=== PATIENT | male | born 1940 | race Caucasian/White ===

== ENCOUNTER → 2018-07-14 | Outpatient (CLI) | payer MEDICARE, OTHER | END | disposition home or self-care (01) | LOC: SHCH 07:50 | PROVIDERS: ATTEND Internal Medicine Cardiovascular Disease | DX: I35.0 Nonrheumatic aortic (valve) stenosis (principal); Z95.2 Presence of prosthetic heart valve | CPT/HCPCS: 93306 ==

== ENCOUNTER → 2018-07-17 | Outpatient (CLI) | payer MEDICARE, OTHER | END | disposition home or self-care (01) | LOC: EDUNIT# 13:30 → SHCH 13:37 | PROVIDERS: ATTEND Internal Medicine Cardiovascular Disease | DX: I65.23 Occlusion and stenosis of bilateral carotid arteries (principal); Z95.2 Presence of prosthetic heart valve | CPT/HCPCS: 93880 ==

== ENCOUNTER 2018-08-20 05:46 | Observation (INO) | payer MEDICARE, OTHER ==
[2018-08-18 08:44] VITALS: BP 174/91
[2018-08-18 09:11] LABS: BASOPHILS % (AUTO) 0.2 % (0.0-5.0); HEMATOCRIT 40.7 % (42-54); LYMPHOCYTES % (AUTO) 16.4 % (21.0-51.0); MEAN CORPUSCULAR HGB CONC 34.2 g/dL (32.0-36.0); MEAN CORPUSCULAR VOLUME 96.4 fL (79-99); MONOCYTES % (AUTO) 8.4 % (3.0-13.0); PLATELET COUNT (AUTO) 133 K/uL (130-400); RED BLOOD CELL COUNT(AUTO) 4.22 MIL/uL (4.50-6.20); RED CELL DISTRIBUTION WIDTH 13.3 % (11.0-15.5); WHITE BLOOD COUNT (AUTO) 8.3 K/uL (4.8-10.8)
[2018-08-18 09:26] LABS: CREATININE 1.3 mg/dL (0.5-1.5); POTASSIUM 4.3 mmol/L (3.5-5.1)
[2018-08-18 09:29] LABS: APPEARANCE,URINE Clear (CLEAR); BILIRUBIN,URINE Negative (NEGATIVE); COLOR,URINE Yellow (YELLOW); GLUCOSE, URINE (UA) Negative (NEGATIVE); KETONES,URINE Negative (NEGATIVE); LEUKOCYTE ESTERASE ,URINE Negative (NEGATIVE); NITRATE,URINE Negative (NEGATIVE); OCCULT BLOOD,URINE Negative (NEGATIVE); PROTEIN,URINE Negative (NEGATIVE)
[2018-08-18 09:35] LABS: INR 0.96 (0.85-1.15); PARTIAL THROMBOPLASTIN TIME 25.1 SEC (26.3-35.5); PROTHROMBIN TIME 10.1 SEC (9.6-11.6)
[~2018-08-20] VITALS: Ht 170.2 cm; Wt 96.3 kg
[2018-08-20] VITALS (14 sets, daily range): BP systolic 94–119; BP diastolic 48–80
[~2018-08-20 05:46] MED LIST: ACETAMINOPHEN 325 MG TAB PO PRN; ASPI-555 PO; CLOP75TA32 PO; DOCU100T PO; FURO40TA5 PO; IBUP-2077 PO; ISOS20TA7 PO; OMEP20TA25 PO; RANO500T3 PO; ROSU40TA20 PO; SODIUM CHLORIDE 0.9% 500ML 500 ML IV SCH; TRAZ150T79 PO; VALS1TAB75 PO
[2018-08-20] MEDS ORDERED: SODIUM CHLORIDE 0.9% 1000ML 1,000 ML IV ONE (06:19)
[2018-08-20] MEDS ORDERED: BUDE10.2 IH (08:15)
[2018-08-20] MEDS ORDERED: HEPARIN SODIUM 1000UNIT/ML 10ML VIAL ONE (09:44)
[2018-08-20] MEDS ORDERED: NITROGLYCERIN 5 MG/ML 10 ML VIAL IV ONE (09:45)
[2018-08-20] MEDS ORDERED: SODIUM BICARB 50MEQ 50ML VIAL ONE (09:45)
[2018-08-20] MEDS ORDERED: IOHEXOL-350 50ML VIAL IV ONE (09:45)
[2018-08-20] MEDS ORDERED: IOHEXOL 350 MG/ML 100ML INFUS..BTL IV ONE (09:45)
[2018-08-20] MEDS ORDERED: LIDOCAINE HCL 2% 20ML ONE (09:45)
[2018-08-20] MEDS ORDERED: MIDAZOLAM HCL 1 MG/ML 2ML VIAL ONE ×3 (10:20→11:45)
[2018-08-20] MEDS ORDERED: MEPERIDINE-PF 25 MG/ML SYG ONE ×3 (10:21→11:45)
[2018-08-20] MEDS: SODIUM CHLORIDE 0.9% 1000ML 1,000 ML IV SCH ×2 (12:01→23:08)
[2018-08-20] MEDS ORDERED: ACETAMINOPHEN-CODEINE 300/30MG TAB PO PRN ×2 (12:15)
[2018-08-20] MEDS ORDERED: ONDANSETRON HCL 4 MG/2 ML VIAL IVP PRN (12:15)
[2018-08-20] MEDS: ALBUTEROL SULFATE 0.083% 2.5 MG/3 ML INH IH SCH ×2 (18:08→23:10)
[2018-08-20] MEDS: BUDESONIDE 0.5 MG/2 ML INH IH SCH (18:21)
[2018-08-20] MEDS: RANOLAZINE 500 MG TAB.SR.12H PO SCH (20:47)
[2018-08-20] MEDS ORDERED: TRAZODONE HCL 100 MG TABLET PO SCH (21:00)
[2018-08-21] VITALS: BP 99/52
[2018-08-21 04:14] VITALS: BP 121/61
[2018-08-21 04:43] LABS: HEMATOCRIT 34.8 % (42-54); MEAN CORPUSCULAR HEMOGLOBIN 32.5 pg (27.0-33.0); MEAN CORPUSCULAR VOLUME 95.7 fL (79-99); NUCLEATED RED BLOOD CELLS 0.1 % (0.0-0.19); PLATELET COUNT (AUTO) 103 K/uL (130-400); RED BLOOD CELL COUNT(AUTO) 3.64 MIL/uL (4.50-6.20); RED CELL DISTRIBUTION WIDTH 13.3 % (11.0-15.5); WHITE BLOOD COUNT (AUTO) 8.2 K/uL (4.8-10.8)
[2018-08-21 05:07] LABS: CREATININE 1.5 mg/dL (0.5-1.5); POTASSIUM 3.5 mmol/L (3.5-5.1)
[2018-08-21] MEDS: BUDESONIDE 0.5 MG/2 ML INH IH SCH (06:14)
[2018-08-21] MEDS: ALBUTEROL SULFATE 0.083% 2.5 MG/3 ML INH IH SCH (06:14)
[2018-08-21 08:07] VITALS: BP 119/58
[2018-08-21] MEDS ORDERED: LOSA1TAB37 PO (08:55)
[2018-08-21] MEDS ORDERED: PANT40TA PO (08:55)
[2018-08-21] MEDS ORDERED: FUROSEMIDE 40 MG TABLET PO SCH (09:00)
[2018-08-21] MEDS ORDERED: CLOPIDOGREL BISULFATE 75 MG TAB PO SCH (09:00)
[2018-08-21] MEDS ORDERED: DOCUSATE SODIUM 100 MG CAP PO SCH (09:00)
[2018-08-21] MEDS ORDERED: ASPIRIN 81MG TAB.CHEW PO SCH (09:00)
[2018-08-21] MEDS ORDERED: LOSARTAN/HYDROCHLOROTHIAZIDE 50-12.5MG TABLET PO SCH (09:00)
[2018-08-21] MEDS ORDERED: ISOSORBIDE MONONITRATE 20 MG TABLET PO SCH (09:00)
[2018-08-21] MEDS ORDERED: PANTOPRAZOLE SODIUM 40 MG TABLET.DR PO SCH (09:00)
[2018-08-21] MEDS ORDERED: ATORVASTATIN CALCIUM 40 MG TABLET PO SCH (09:00)
[2018-08-21] MEDS: RANOLAZINE 500 MG TAB.SR.12H PO SCH (09:21)
== END 2018-08-21 09:30 | disposition home or self-care (01) ==
LOC: DAH 05:46 → 2DH 05:47
PROVIDERS: ADMIT Internal Medicine Cardiovascular Disease; ATTEND Internal Medicine Cardiovascular Disease
DX: I25.119 Atherosclerotic heart disease of native coronary artery with unspecified angina pectoris (principal); I12.9 Hypertensive chronic kidney disease with stage 1 through stage 4 chronic kidney disease, or unspecified chronic kidney disease; N18.3 Chronic kidney disease, stage 3 (moderate); I25.82 Chronic total occlusion of coronary artery; I35.0 Nonrheumatic aortic (valve) stenosis; E78.5 Hyperlipidemia, unspecified; E66.9 Obesity, unspecified; T82.855A Stenosis of coronary artery stent, initial encounter; T82.857A Stenosis of other cardiac prosthetic devices, implants and grafts, initial encounter; Y83.1 Surgical operation with implant of artificial internal device as the cause of abnormal reaction of the patient, or of later complication, without mention of misadventure at the time of the procedure; Y83.2 Surgical operation with anastomosis, bypass or graft as the cause of abnormal reaction of the patient, or of later complication, without mention of misadventure at the time of the procedure; Z95.3 Presence of xenogenic heart valve; Z95.1 Presence of aortocoronary bypass graft; Z90.49 Acquired absence of other specified parts of digestive tract; Z82.49 Family history of ischemic heart disease and other diseases of the circulatory system; Z79.01 Long term (current) use of anticoagulants
CPT/HCPCS: 36415 ×2; 71045; 80048 ×2; 80061; 81003; 85025; 85027; 85610; 85730; 93005; 93455; 94640 ×5; 94664; C1725; C1760; C1769 ×2; C1874 ×2; C1884 ×2; C1887 ×2; C1893 ×2; C1894; C9604 ×2; G0378 ×28; J1644 ×3; J2175 ×3; J2250 ×3; J3490 ×3; J7030 ×3; Q9965 ×2; Q9967 ×2; 93454; 99156; 99157; C9600

== ENCOUNTER → 2019-12-24 | Outpatient (CLI) | payer MEDICARE, OTHER ==
[~2019-12-24] MED LIST changes: -ACETAMINOPHEN 325 MG TAB PO PRN; +BUDE10.2 IH; +LOSA1TAB37 PO; -OMEP20TA25 PO; +PANT40TA PO; -ROSU40TA20 PO; +ROSU40TA21 PO; -SODIUM CHLORIDE 0.9% 500ML 500 ML IV SCH; -VALS1TAB75 PO
== END | disposition home or self-care (01) ==
LOC: SHCH 12:38
PROVIDERS: ATTEND Internal Medicine Cardiovascular Disease
DX: R60.9 Edema, unspecified (principal)
CPT/HCPCS: 93970

== ENCOUNTER 2020-06-15 07:30 | Day surgery (SDC) | payer MEDICARE ==
--- NOTE | 2020-06-14 09:27 | NUR ---
report reported to dr washington and dr fu that covid test was not done on preop day. ok to proceed with covid rapid antigen in am if pt asymptomatic.
[2020-06-14 11:56] VITALS: BP 119/79
[~2020-06-15] VITALS: Ht 172.7 cm; Wt 87.5 kg
[2020-06-15] VITALS (10 sets, daily range): BP systolic 103–129; BP diastolic 59–82
[~2020-06-15 07:30] MED LIST changes: +AMIO200T5 PO; +APIX5TAB PO; -ASPI-555 PO; -BUDE10.2 IH; +DILT120C12 PO; -DOCU100T PO; -IBUP-2077 PO; -ISOS20TA7 PO; +ISOS60TA4 PO; -LOSA1TAB37 PO; +MULT-1192 PO; +RANO10003 PO; -RANO500T3 PO; +SODIUM CHLORIDE 0.9% 500ML 500 ML IV SCH
--- NOTE | 2020-06-15 07:56 | NUR ---
EKG Dr. Montiel was made aware of pre-cardioversion EKGs. Stated ok to proceed
[2020-06-15 08:04] LABS: BASOPHILS % (AUTO) 0.1 % (0.0-5.0); EOSINOPHILS % (AUTO) 0.7 % (0.0-8.0); HEMATOCRIT 36.9 % (42-54); LYMPHOCYTES % (AUTO) 17.7 % (21.0-51.0); MEAN CORPUSCULAR HEMOGLOBIN 32.7 pg (27.0-33.0); MEAN CORPUSCULAR HGB CONC 33.6 g/dL (32.0-36.0); MEAN CORPUSCULAR VOLUME 97.4 fL (79-99); MONOCYTES % (AUTO) 8.8 % (3.0-13.0); NEUTROPHILS % (AUTO) 72.5 % (40.0-77.0); PLATELET COUNT (AUTO) 146 K/uL (130-400); RED BLOOD CELL COUNT(AUTO) 3.79 MIL/uL (4.50-6.20); RED CELL DISTRIBUTION WIDTH 13.2 % (11.0-15.5); WHITE BLOOD COUNT (AUTO) 8.3 K/uL (4.8-10.8)
[2020-06-15 08:09] LABS: CREATININE 1.4 mg/dL (0.5-1.5)
--- NOTE | 2020-06-15 08:55 | NUR ---
Low potassium Made Dr. Montiel aware of low potassium. Orders to be given post procedure.
[2020-06-15] MEDS ORDERED: PROPOFOL 10 MG/ML 20ML VIAL IV ONE (08:57)
[2020-06-15] MEDS ORDERED: SUCCINYLCHOLINE 200MG/10ML SYR ONE (08:57)
[2020-06-15] MEDS ORDERED: ATROPINE SULFATE 0.1 MG/ML 10 ML SYG IVP ONE (08:58)
--- NOTE | 2020-06-15 09:05 | NUR ---
Start Dr. Montiel and Dr. Mercado in room. Pads applied by Dr. Montiel. Time out was then called. Procedure to begin. First shock delivered at 0913 at 200j. Pt in normal sinus rhythm. No further shocks needed. Pt bradycardic. MDs present and aware. Post cardioversion EKG done and shown to Dr. Montiel.
[2020-06-15] MEDS ORDERED: POTASSIUM CHLORIDE 20 MEQ ERTAB PO SCH (09:45)
--- NOTE | 2020-06-15 10:15 | NUR ---
D/C Pt prepared for discharge. Pt awake and alert. Very pleasant and denies any c/o. Reviewed discharge instructions with pt and over the phone. Informed them of appointment times and new prescription. Made aware that Potassium 40meq was given to pt earlier. Pt and verbalized understanding regarding discharge instructions. Pt was then taken out of facility via w/c with awaiting in private car.
== END 2020-06-15 10:30 ==
LOC: DAH 07:30
PROVIDERS: ATTEND Internal Medicine Cardiovascular Disease
DX: I47.1 Supraventricular tachycardia (principal); I25.10 Atherosclerotic heart disease of native coronary artery without angina pectoris; I42.0 Dilated cardiomyopathy; I10 Essential (primary) hypertension; E03.9 Hypothyroidism, unspecified; Z79.01 Long term (current) use of anticoagulants; Z79.899 Other long term (current) drug therapy
CPT/HCPCS: 36415; 80048; 85025; 87426; 92960; 93005 ×2; A4215 ×2; A4216; A4221; A4222; A4223 ×2; A4606; A4663; J2704; J0330; J0461

== ENCOUNTER → 2020-06-17 | Outpatient (CLI) | payer MEDICARE ==
[~2020-06-17] MED LIST changes: -SODIUM CHLORIDE 0.9% 500ML 500 ML IV SCH
== END | disposition home or self-care (01) ==
LOC: SHCH 09:20
PROVIDERS: ATTEND Internal Medicine Cardiovascular Disease
DX: I08.0 Rheumatic disorders of both mitral and aortic valves (principal); I25.5 Ischemic cardiomyopathy; I31.3 Pericardial effusion (noninflammatory)
CPT/HCPCS: 93306

== ENCOUNTER 2020-08-03 06:55 | Day surgery (SDC) | payer MEDICARE ==
[2020-08-01 09:12] LABS: BASOPHILS % (AUTO) 0.1 % (0.0-5.0); EOSINOPHILS % (AUTO) 0.8 % (0.0-8.0); LYMPHOCYTES % (AUTO) 14.9 % (21.0-51.0); MEAN CORPUSCULAR HEMOGLOBIN 32.1 pg (27.0-33.0); MEAN CORPUSCULAR HGB CONC 32.9 g/dL (32.0-36.0); MEAN CORPUSCULAR VOLUME 97.7 fL (79-99); MONOCYTES % (AUTO) 10.1 % (3.0-13.0); NEUTROPHILS % (AUTO) 73.7 % (40.0-77.0); PLATELET COUNT (AUTO) 120 K/uL (130-400); RED BLOOD CELL COUNT(AUTO) 3.89 MIL/uL (4.50-6.20); RED CELL DISTRIBUTION WIDTH 13.2 % (11.0-15.5); WHITE BLOOD COUNT (AUTO) 7.8 K/uL (4.8-10.8)
[2020-08-01 09:17] LABS: CREATININE 1.5 mg/dL (0.5-1.5); POTASSIUM 3.7 mmol/L (3.5-5.1)
--- NOTE | 2020-08-02 10:08 | NUR ---
[employer] rep Spoke to Donaldo with [employer] and made him aware of pt possible having a dual chamber pacemaker implant. Verbalized understanding
[2020-08-02 10:16] VITALS: BP 134/63
--- NOTE | 2020-08-02 13:23 | NUR ---
Abnormal labs Reported abnormal labs to KIM Mcmullen. Said ok to proceed.
[~2020-08-03] VITALS: Ht 167.6 cm; Wt 86.2 kg
[~2020-08-03 06:55] MED LIST changes: -AMIO200T5 PO; +AMIO200T6 PO; -DILT120C12 PO; +SODIUM CHLORIDE 0.9% 1000ML 1,000 ML IV SCH
--- NOTE | 2020-08-03 08:03 | NUR ---
Procedure cancelled due to patient taking eliquis yesterday morning, advised patient about the need to rescheduled and the importance of why, per Doctor Tiana.
== END 2020-08-03 07:30 | disposition home or self-care (01) ==
LOC: DAH 06:55
PROVIDERS: ATTEND Internal Medicine Cardiovascular Disease
DX: I47.1 Supraventricular tachycardia (principal); I25.10 Atherosclerotic heart disease of native coronary artery without angina pectoris; Z95.1 Presence of aortocoronary bypass graft; I42.0 Dilated cardiomyopathy; I10 Essential (primary) hypertension; E78.5 Hyperlipidemia, unspecified; Z79.01 Long term (current) use of anticoagulants; Z79.899 Other long term (current) drug therapy; Z53.8 Procedure and treatment not carried out for other reasons
CPT/HCPCS: 36415; 80048; 85025

== ENCOUNTER 2020-08-23 05:51 | Observation (INO) | payer MEDICARE ==
[2020-08-19 15:32] LABS: BASOPHILS % (AUTO) 0.3 % (0.0-5.0); EOSINOPHILS % (AUTO) 1.2 % (0.0-8.0); HEMATOCRIT 36.7 % (42-54); MEAN CORPUSCULAR HEMOGLOBIN 32.5 pg (27.0-33.0); MEAN CORPUSCULAR HGB CONC 33.8 g/dL (32.0-36.0); MEAN CORPUSCULAR VOLUME 96.3 fL (79-99); MONOCYTES % (AUTO) 11.5 % (3.0-13.0); NEUTROPHILS % (AUTO) 63.9 % (40.0-77.0); PLATELET COUNT (AUTO) 144 K/uL (130-400); RED BLOOD CELL COUNT(AUTO) 3.81 MIL/uL (4.50-6.20); RED CELL DISTRIBUTION WIDTH 12.6 % (11.0-15.5); WHITE BLOOD COUNT (AUTO) 6.9 K/uL (4.8-10.8)
[2020-08-19 15:40] LABS: CREATININE 1.9 mg/dL (0.5-1.5); POTASSIUM 3.4 mmol/L (3.5-5.1)
[2020-08-19 15:46] LABS: INR 1.02 (0.85-1.15); PARTIAL THROMBOPLASTIN TIME 25.9 SEC (26.3-35.5)
--- NOTE | 2020-08-22 10:47 | NUR ---
REPORTED CALLED FIDEL ALVAREZ WITH DR BLACKMAN AND REPORTED BMP AND CBC ABNORMALS. NO NEW ORDERS RECEIVED
[2020-08-22 13:01] VITALS: BP 151/73
[2020-08-23] VITALS (11 sets, daily range): BP systolic 122–152; BP diastolic 54–88
[~2020-08-23] VITALS: Ht 172.7 cm; Wt 86.2 kg
[~2020-08-23 05:51] MED LIST changes: +DILT120C92 PO; +NITR0.4T50 SL; -RANO10003 PO; -SODIUM CHLORIDE 0.9% 1000ML 1,000 ML IV SCH
[2020-08-23] MEDS ORDERED: LIDOCAINE HCL 2% 20ML ONE (07:25)
[2020-08-23] MEDS ORDERED: SODIUM CHLORIDE 0.9% 1000ML 1,000 ML IV SCH (08:00)
[2020-08-23] MEDS ORDERED: MIDAZOLAM HCL 1 MG/ML 2ML VIAL ONE ×3 (08:09→09:52)
[2020-08-23] MEDS ORDERED: MEPERIDINE-PF 25 MG/ML SYG ONE ×3 (08:10→09:52)
[2020-08-23] MEDS ORDERED: LIDOCAINE HCL 1% MDV 50ML VIAL ONE (09:20)
[2020-08-23] MEDS ORDERED: BUPIVACAINE/PF 0.25% 30ML VIAL IJ ONE (09:20)
[2020-08-23] MEDS ORDERED: CEFAZOLIN SODIUM 1 GM VIAL ONE (09:20)
[2020-08-23] MEDS ORDERED: IODIXANOL 320 MG/ML 100 ML VIAL ONE (10:02)
[2020-08-23] MEDS ORDERED: NITROGLYCERIN 0.4 MG SL TAB SL PRN (11:15)
--- NOTE | 2020-08-23 11:20 | NUR ---
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 Pt reminded that he was on bedrest x 3 hours and to refrain from lifting left arm above shoulder. Dressing to left chest clean, dry, and intact, pressure dressing and sling in place.
[2020-08-23] MEDS ORDERED: ACETAMINOPHEN-CODEINE 300/30MG TAB ONE (11:33)
[2020-08-23] MEDS: ACETAMINOPHEN-CODEINE 300/30MG TAB PO PRN ×3 (11:40→20:49)
[2020-08-23] MEDS ORDERED: ACETAMINOPHEN 325 MG TAB PO PRN (11:45)
[2020-08-23] MEDS ORDERED: ACETAMINOPHEN-CODEINE 300/30MG TAB PO PRN (11:45)
--- NOTE | 2020-08-23 14:30 | NUR ---
Pt taken to room 423, awake, alert s signs of distress. Dressing to left chest remains clean, dry, and intact with pressure dressing and sling in place. Spouse notified of pt's new room. Report called to LEONELA Armenta prior to taking pt upstairs. Pt's cared rendered over to LEONELA Armenta at bedside. Pt assisted up out of bed to void, voided large amount. Pt situated in bed, water provided. Pt reported no further questions or requests at this time.
--- NOTE | 2020-08-23 14:45 | NUR ---
ARRIVAL TO FLOOR ROOM 423. AAOX3 DENIES CP DENIES SOB DENIES NV AT THIS TIME. STATES SOME DISCOMFORT TO LEFT UPPER CHEST AREA, DRESSING IS CLEAN DRY AND INTACT. WILL WAIT TILL NEXT PAIN MED TIME TO RECEIVE PRN PAIN MED. NO VISIBLE SIGN OF DISTRESS NOTED, BREATHING PATTERN IS EVEN AND UNLABORED, CALL LIGHT WITHIN REACH.
[2020-08-23] MEDS: AMIODARONE HCL 200 MG TABLET PO SCH (20:49)
[2020-08-23] MEDS: ISOSORBIDE MONO 60 MG TAB.SR PO SCH ×3 (20:50→21:16)
[2020-08-23] MEDS ORDERED: DILTIAZEM HCL 120 MG CAP.SR.24H PO SCH (21:00)
[2020-08-23] MEDS ORDERED: TRAZODONE HCL 50 MG TAB PO SCH (21:00)
[2020-08-23] MEDS ORDERED: ATORVASTATIN CALCIUM 40 MG TABLET PO SCH (21:00)
[2020-08-24 00:10] VITALS: BP 124/71
[2020-08-24] MEDS: ACETAMINOPHEN-CODEINE 300/30MG TAB PO PRN ×2 (03:37→09:26)
[2020-08-24 04:29] VITALS: BP 134/77
[2020-08-24 05:13] LABS: BASOPHILS % (AUTO) 0.1 % (0.0-5.0); EOSINOPHILS % (AUTO) 1.5 % (0.0-8.0); HEMATOCRIT 33.7 % (42-54); LYMPHOCYTES % (AUTO) 14.1 % (21.0-51.0); MEAN CORPUSCULAR HEMOGLOBIN 31.5 pg (27.0-33.0); MEAN CORPUSCULAR HGB CONC 32.9 g/dL (32.0-36.0); MEAN CORPUSCULAR VOLUME 95.7 fL (79-99); MONOCYTES % (AUTO) 11.9 % (3.0-13.0); NEUTROPHILS % (AUTO) 72.1 % (40.0-77.0); PLATELET COUNT (AUTO) 108 K/uL (130-400); RED BLOOD CELL COUNT(AUTO) 3.52 MIL/uL (4.50-6.20); RED CELL DISTRIBUTION WIDTH 12.7 % (11.0-15.5); WHITE BLOOD COUNT (AUTO) 7.1 K/uL (4.8-10.8)
[2020-08-24 05:37] LABS: ALBUMIN 2.9 g/dL (3.5-5.0); BILIRUBIN,TOTAL 0.3 mg/dL (0.2-1.0); CREATININE 1.5 mg/dL (0.5-1.5); POTASSIUM 3.6 mmol/L (3.5-5.1); TOTAL PROTEIN, SERUM 5.9 g/dL (6.0-8.3)
[2020-08-24 07:00] VITALS: BP 123/69
--- NOTE | 2020-08-24 08:00 | NUR ---
AM ASSESSMENT PT LAYING IN BED, WATCHING TV. SPOUSE @ BEDSIDE. A/O X 3. NO SOB. NO DISTRESS NOTED. DENIES CHEST PAIN OR DISCOMFORT. DENIES INCISIONAL PAIN. TELE: V PACED. LT UPPER CHEST PRESSURE DSG REMOVED @ THIS TIME. S/P ICD PLACEMENT 08/23/20. TELFA & OPSITE DRY & INTACT. NO BLEEDING, NO HEMATOMA NOTED. SLING TO LT ARM. ARM PRECAUTIONS REINFORCED @ THIS TIME. DENIES N/V AND/OR DIARRHEA. UP W/ASSISTANCE. INSTRUCTED TO CALL FOR ASSISTANCE. CALL LIBERTAD W/IN REACH. Addendum: 08/24/20 at 1049 by GWENDOLYN HEAD RN RN S/P EPS 08/23/20, DSG TO RT GROIN DRY & INTACT. PUNCTURE SITE SOFT, NON-TENDER. NO BLEEDING, NO HEMATOMA NOTED. (+) BILATERAL PEDAL PULSES. BLE PINK & WARM TO TOUCH.
[2020-08-24] MEDS: AMIODARONE HCL 200 MG TABLET PO SCH (08:54)
[2020-08-24] MEDS ORDERED: FAMOTIDINE 20MG TAB 20 MG TAB PO SCH (09:00)
[2020-08-24] MEDS ORDERED: FUROSEMIDE 40 MG TABLET PO SCH (09:00)
[2020-08-24] MEDS ORDERED: PANTOPRAZOLE SODIUM 40 MG TABLET.DR PO SCH (09:00)
[2020-08-24] MEDS ORDERED: MULTIVITAMIN TABLET PO SCH (09:00)
[2020-08-24] MEDS ORDERED: CLOPIDOGREL BISULFATE 75 MG TAB PO SCH (09:00)
--- NOTE | 2020-08-24 09:40 | NUR ---
CHART REVIEWED ELECTIVE PROCEDURE, NO CONCERNS VOICED BY LEONELA/GOSIA CISNEROS DETAILED ASSESSMENT DEFERRED Addendum: 08/24/20 at 1800 by ASHLEY DAY RN CM Amended: Links added.
[2020-08-24] MEDS ORDERED: TRAM50TA4 PO (10:04)
--- NOTE | 2020-08-24 12:00 | NUR ---
DISCHARGE VERBAL& WRITTEN DISCHARGE INSTRUCTIONS REVIEWED & GIVEN TO PT & SPOUSE. QUESTIONS ENCOURAGED & CLARIFIED. PROPER CARE & ACTIVITY AFTER EPS & ICD PLACEMENT REVIEWED. ARM PRECAUTIONS REINFORCED. DSG CHANGES REVIEWED @ THIS TIME. EXTRA TELFA & OPSITE GIVEN TO PT. NEW PRESCRIBED MEDICATIONS REVIEWED W/PT. PRESCRIPTION GIVEN TO PT; SIGNED COPY PLACED IN CHART. PT REMINDED TO RESUME ELIQUIS HS 08/25/20. TELE MARCI REMOVED. IV DC'D @ THIS TIME. PT & SPOUSE TO GATHER PERSONAL BELONGINGS. WILL NOTIFY STAFF WHEN READY TO BE TAKEN TO PRIVATE VEHICLE.
--- NOTE | 2020-08-24 12:15 | NUR ---
DISCHARGE PT TAKEN TO PRIVATE VEHICLE VIA WC BY MYSELF, Rosey HEAD RN, ACCOMPANIED BY SPOUSE. NO DISTRESS NOTED.
--- NOTE | 2020-08-24 14:58 | NUR ---
SCHEDULED OPP, NO CONCERNS VOICED CM DETAILED ASSESSMENT DEFERRED
== END 2020-08-24 12:15 | disposition home or self-care (01) ==
LOC: DAH 05:51 → DAHIP 05:52 → 4DH 14:41
PROVIDERS: ADMIT Internal Medicine; ATTEND Internal Medicine
DX: I42.8 Other cardiomyopathies (principal); I45.89 Other specified conduction disorders; I47.1 Supraventricular tachycardia; R55 Syncope and collapse; I44.7 Left bundle-branch block, unspecified; I25.10 Atherosclerotic heart disease of native coronary artery without angina pectoris; I10 Essential (primary) hypertension; E78.5 Hyperlipidemia, unspecified; Z95.1 Presence of aortocoronary bypass graft; Z95.3 Presence of xenogenic heart valve; Z90.49 Acquired absence of other specified parts of digestive tract; Z79.01 Long term (current) use of anticoagulants; Z79.899 Other long term (current) drug therapy; Z88.7 Allergy status to serum and vaccine
CPT/HCPCS: 33249; 36415 ×2; 71045; 80048; 80053; 85025 ×2; 85610; 85730; 93620; A4215; A4216; A4221; A4222; A4223 ×3; A4606; A4663; C1721; C1730 ×2; C1894 ×3; C1895; C1896; G0378 ×25; J0690; J1644; J2175 ×2; J2250 ×2; J3490 ×3; J7030; Q9967; 99156; 99157

== ENCOUNTER → 2020-12-15 | Outpatient (CLI) | payer MEDICARE ==
[~2020-12-15] MED LIST changes: -ISOS60TA4 PO; +ISOS60TA77 PO; +TRAM50TA4 PO
== END | disposition home or self-care (01) ==
LOC: SHCH 14:17
PROVIDERS: ATTEND Internal Medicine Cardiovascular Disease
DX: I65.23 Occlusion and stenosis of bilateral carotid arteries (principal); R09.89 Other specified symptoms and signs involving the circulatory and respiratory systems
CPT/HCPCS: 93880

== ENCOUNTER → 2021-08-28 | Outpatient (CLI) | payer MEDICARE ==
[~2021-08-28] MED LIST changes: -AMIO200T6 PO; +AMIO200T68 PO; +REGADENOSON 0.4 MG/5 ML PF SYG IVP SCH
== END | disposition home or self-care (01) ==
LOC: SHCH 09:30
PROVIDERS: ATTEND Internal Medicine Cardiovascular Disease
DX: I51.7 Cardiomegaly (principal); I25.5 Ischemic cardiomyopathy; Z95.0 Presence of cardiac pacemaker
CPT/HCPCS: 78452; 93017; 96374; A9500 ×2; J2785

== ENCOUNTER 2021-10-16 07:51 | Observation (INO) | payer MEDICARE ==
[2021-10-12 09:53] LABS: BASOPHILS % (AUTO) 0.3 % (0.0-5.0); EOSINOPHILS % (AUTO) 1.3 % (0.0-8.0); HEMATOCRIT 34.6 % (42-54); LYMPHOCYTES % (AUTO) 19.3 % (21.0-51.0); MEAN CORPUSCULAR HEMOGLOBIN 31.8 pg (27.0-33.0); MEAN CORPUSCULAR HGB CONC 34.1 g/dL (32.0-36.0); MEAN CORPUSCULAR VOLUME 93.3 fL (79-99); NEUTROPHILS % (AUTO) 66.8 % (40.0-77.0); PLATELET COUNT (AUTO) 113 K/uL (130-400); RED BLOOD CELL COUNT(AUTO) 3.71 MIL/uL (4.50-6.20); RED CELL DISTRIBUTION WIDTH 13.2 % (11.0-15.5); WHITE BLOOD COUNT (AUTO) 6.9 K/uL (4.8-10.8)
[2021-10-12 10:00] LABS: APPEARANCE,URINE Clear (CLEAR); BILIRUBIN,URINE Negative (NEGATIVE); COLOR,URINE Yellow (YELLOW); GLUCOSE, URINE (UA) Negative (NEGATIVE); KETONES,URINE Negative (NEGATIVE); LEUKOCYTE ESTERASE ,URINE Trace (NEGATIVE); NITRATE,URINE Negative (NEGATIVE); OCCULT BLOOD,URINE Negative (NEGATIVE); PROTEIN,URINE POS 1+ mg/dL (NEGATIVE)
[2021-10-12 10:05] LABS: CREATININE 2.3 mg/dL (0.5-1.5)
[2021-10-12 10:13] LABS: POTASSIUM 2.9 mmol/L (3.5-5.1)
[2021-10-12 10:53] LABS: INR 1.13 (0.85-1.15); PROTHROMBIN TIME 12.2 SEC (9.6-11.6)
[2021-10-12 10:55] LABS: PARTIAL THROMBOPLASTIN TIME 24.7 SEC (26.3-35.5)
[2021-10-12 11:00] LABS: BACTERIA,URINE Rare /HPF (None Seen); MUCUS,URINE Few LPF (None Seen); RBC,URINE 0-1 /HPF (0-1); SQUAMOUS EPITHELIAL CELL,UR Rare /HPF (0-2)
[2021-10-13 15:51] VITALS: BP 108/73
[~2021-10-16] VITALS: Ht 167.6 cm; Wt 98.4 kg
[2021-10-16] VITALS (18 sets, daily range): BP systolic 109–155; BP diastolic 68–94
[~2021-10-16 07:51] MED LIST changes: +0.9% NACL 500ML IV.SOLN 500 ML IV SCH; +ALBU90AE2 IH; +METO-391 PO; +POTA-10 PO; -REGADENOSON 0.4 MG/5 ML PF SYG IVP SCH; -TRAM50TA4 PO; +TRAZ-187 PO; -TRAZ150T79 PO
[2021-10-16 08:44] LABS: CREATININE 2.3 mg/dL (0.5-1.5)
[2021-10-16] MEDS ORDERED: 0.9%NACL 1000ML 1,000 ML IV ONE (09:41)
[2021-10-16] MEDS: KCL 20 MEQ ERTAB PO SCH (09:54)
[2021-10-16] MEDS ORDERED: HEPARIN 10,000 UNIT/10ML (1,000 UNIT/ML) VIAL ONE (13:09)
[2021-10-16] MEDS ORDERED: SODIUM BICARB 50MEQ 50ML VIAL 50 ML ONE (13:09)
[2021-10-16] MEDS ORDERED: LIDOCAINE HCL 400MG/20ML VIAL ONE (13:09)
[2021-10-16] MEDS ORDERED: IOHEXOL 350 MG/ML 100ML INFUS..BTL IV ONE (13:09)
[2021-10-16] MEDS ORDERED: NITROGLYCERIN 50MG VIAL IV ONE (13:09)
[2021-10-16] MEDS ORDERED: MEPERIDINE-PF 25 MG/ML SYG ONE ×3 (13:24→14:08)
[2021-10-16] MEDS ORDERED: MIDAZOLAM HCL 1 MG/ML 2ML VIAL ONE ×3 (13:24→14:08)
[2021-10-16] MEDS ORDERED: ASPIRIN 81MG CHEW TAB ONE (15:14)
[2021-10-16] MEDS ORDERED: NITROGLYCERIN 0.4 MG SL TAB SL PRN (15:30)
[2021-10-16] MEDS ORDERED: ALBUTEROL INHALER 90MCG/INH IH PRN (15:30)
[2021-10-16] MEDS ORDERED: KCL 20 MEQ ERTAB PO PRN (15:30)
[2021-10-16] MEDS: 0.9%NACL 1000ML 1,000 ML IV SCH ×2 (16:38→22:02)
[2021-10-16] MEDS ORDERED: CEFTRIAXONE 1G VIAL IVP SCH (18:30)
[2021-10-16] MEDS: MORPHINE 2 MG SYG IVP PRN (20:21)
[2021-10-16] MEDS: PANTOPRAZOLE 40 MG TAB DR PO SCH (20:25)
[2021-10-16] MEDS ORDERED: ONDANSETRON 4MG INJ IVP PRN (20:30)
[2021-10-16] MEDS ORDERED: METOPROLOL SUCCINATE 50 MG TAB.SR.24H PO SCH (21:00)
[2021-10-16] MEDS ORDERED: ISOSORBIDE MONO 60MG SR TAB PO SCH (21:00)
[2021-10-16] MEDS ORDERED: TRAZODONE HCL 100 MG TABLET PO SCH (21:00)
[2021-10-16] MEDS ORDERED: MORPHINE 2 MG SYG IVP ONE (21:30)
[2021-10-16] MEDS ORDERED: APIX5TAB PO (23:05)
[2021-10-17] MEDS: MORPHINE 2 MG SYG IVP PRN (01:09)
[2021-10-17 04:00] VITALS: BP 107/61
[2021-10-17 05:36] LABS: HEMATOCRIT 31.9 % (42-54); MEAN CORPUSCULAR HEMOGLOBIN 32.2 pg (27.0-33.0); MEAN CORPUSCULAR HGB CONC 33.9 g/dL (32.0-36.0); MEAN CORPUSCULAR VOLUME 95.2 fL (79-99); RED BLOOD CELL COUNT(AUTO) 3.35 MIL/uL (4.50-6.20); RED CELL DISTRIBUTION WIDTH 13.1 % (11.0-15.5); WHITE BLOOD COUNT (AUTO) 9.8 K/uL (4.8-10.8)
[2021-10-17 06:06] LABS: CREATININE 1.9 mg/dL (0.5-1.5); CRP QUANTITATIVE 5.6 mg/L (0.00-9.0); MAGNESIUM 1.9 mg/dL (1.80-2.40); PHOSPHORUS 3.9 mg/dL (2.5-4.9)
[2021-10-17 08:36] VITALS: BP 135/74
[2021-10-17] MEDS ORDERED: POTASSIUM CHLORIDE 10MEQ SR TAB PO SCH (09:00)
[2021-10-17] MEDS ORDERED: FUROSEMIDE 40 MG TABLET PO SCH (09:00)
[2021-10-17] MEDS ORDERED: AMIODARONE 200 MG TABLET PO SCH (09:00)
[2021-10-17] MEDS ORDERED: MULTIVITAMIN TABLET PO SCH (09:00)
[2021-10-17] MEDS ORDERED: ATORVASTATIN 40 MG TABLET PO SCH (09:00)
[2021-10-17] MEDS ORDERED: CLOPIDOGREL 75MG TAB PO SCH (09:00)
[2021-10-17] MEDS: PANTOPRAZOLE 40 MG TAB DR PO SCH (10:00)
[2021-10-17] MEDS: KCL 20 MEQ ERTAB PO SCH (10:06)
[2021-10-17 11:02] VITALS: BP 128/71
== END 2021-10-17 17:00 | disposition home or self-care (01) ==
LOC: DAH 07:51 → DAHIP 07:52 → 4DH 19:05
PROVIDERS: ADMIT Internal Medicine; ATTEND Internal Medicine
DX: I25.5 Ischemic cardiomyopathy (principal); I25.10 Atherosclerotic heart disease of native coronary artery without angina pectoris; I11.0 Hypertensive heart disease with heart failure; I50.9 Heart failure, unspecified; I25.810 Atherosclerosis of coronary artery bypass graft(s) without angina pectoris; H91.90 Unspecified hearing loss, unspecified ear; E87.6 Hypokalemia; Z95.3 Presence of xenogenic heart valve; Z95.5 Presence of coronary angioplasty implant and graft; Z79.899 Other long term (current) drug therapy; Z98.890 Other specified postprocedural states
CPT/HCPCS: 36415; 71045; 80048; 80061; 81001; 83735; 84100; 84145; 85025; 85027; 85347; 85610; 85730; 86140; 87088; 93005; 93306; 93356; 93459; 96374; 96375; 96376; 99156; 99157; A4606; C1725; C1760; C1769; C1893; C1894; C9604; G0378; J0696; J1644; J2175; J2250; J3490; J7030; Q9967

== ENCOUNTER 2022-02-13 05:46 | Day surgery (SDC) | payer MEDICARE ==
[2022-02-12 11:37] LABS: BASOPHILS % (AUTO) 0.3 % (0.0-5.0); EOSINOPHILS % (AUTO) 1.2 % (0.0-8.0); HEMATOCRIT 39.2 % (42-54); LYMPHOCYTES % (AUTO) 21.5 % (21.0-51.0); MEAN CORPUSCULAR HEMOGLOBIN 32.1 pg (27.0-33.0); MEAN CORPUSCULAR HGB CONC 33.2 g/dL (32.0-36.0); MEAN CORPUSCULAR VOLUME 96.8 fL (79-99); MONOCYTES % (AUTO) 11.1 % (3.0-13.0); NEUTROPHILS % (AUTO) 65.7 % (40.0-77.0); PLATELET COUNT (AUTO) 113 K/uL (130-400); RED BLOOD CELL COUNT(AUTO) 4.05 MIL/uL (4.50-6.20); RED CELL DISTRIBUTION WIDTH 13.5 % (11.0-15.5); WHITE BLOOD COUNT (AUTO) 5.8 K/uL (4.8-10.8)
[2022-02-12 11:42] LABS: CREATININE 1.6 mg/dL (0.5-1.5)
[2022-02-12 11:48] LABS: INR 1.05 (0.85-1.15); PROTHROMBIN TIME 11.4 SEC (9.6-11.6)
[2022-02-12 11:50] LABS: PARTIAL THROMBOPLASTIN TIME 24.9 SEC (26.3-35.5)
[2022-02-12 14:24] VITALS: BP 125/87
[~2022-02-13] VITALS: Ht 167.6 cm; Wt 90.9 kg
[2022-02-13] VITALS (11 sets, daily range): BP systolic 107–123; BP diastolic 58–71
[~2022-02-13 05:46] MED LIST changes: -0.9% NACL 500ML IV.SOLN 500 ML IV SCH; +ATOR40TA69 PO; -DILT120C92 PO; +DOCU100T PO; +FURO20TA4 PO; -FURO40TA5 PO; -ISOS60TA77 PO; +LEVO50CA4 PO; -METO-391 PO; +METO-408 PO; -MULT-1192 PO; -PANT40TA PO; -POTA-10 PO; -ROSU40TA21 PO; +SACU1TAB PO; +SPIR25TA6 PO; -TRAZ-187 PO; +TRAZ150T79 PO
[2022-02-13] MEDS ORDERED: 0.9% NACL 500ML IV.SOLN 500 ML IV SCH (06:00)
[2022-02-13] MEDS ORDERED: 0.9%NACL 1000ML 1,000 ML IV ONE (06:17)
[2022-02-13 06:32] LABS: CREATININE 1.7 mg/dL (0.5-1.5); POTASSIUM 3.4 mmol/L (3.5-5.1)
[2022-02-13] MEDS ORDERED: BUPIVACAINE/PF 0.25% 30ML VIAL IJ ONE (07:03)
[2022-02-13] MEDS ORDERED: CEFAZOLIN SODIUM 1 GM VIAL ONE ×2 (07:03→12:00)
[2022-02-13] MEDS ORDERED: IOHEXOL-350 50ML VIAL IV ONE (07:03)
[2022-02-13] MEDS ORDERED: LIDOCAINE HCL 1% 20 ML VIAL ONE ×2 (07:03→07:29)
[2022-02-13] MEDS ORDERED: MIDAZOLAM HCL 1 MG/ML 2ML VIAL ONE ×4 (07:04→09:44)
[2022-02-13] MEDS ORDERED: MEPERIDINE-PF 25 MG/ML SYG ONE ×4 (07:04→09:44)
[2022-02-13] MEDS ORDERED: THROMBIN-JMI 5000 UNIT/VIAL TP ONE (09:43)
[2022-02-13] MEDS ORDERED: ACETAMINOPHEN 325 MG TAB PO PRN (10:30)
[2022-02-13] MEDS ORDERED: ONDANSETRON 4MG INJ IV PRN (10:30)
[2022-02-13] MEDS: ACETAMINOPHEN 325 MG TAB PO PRN ×2 (13:14→13:44)
[2022-02-13] MEDS ORDERED: CEFAZOLIN SODIUM 1 GM VIAL IVP ONE (14:00)
== END 2022-02-13 16:01 | disposition home or self-care (01) ==
LOC: DAH 05:46
PROVIDERS: ATTEND Internal Medicine Cardiovascular Disease
DX: I25.5 Ischemic cardiomyopathy (principal); I50.22 Chronic systolic (congestive) heart failure; I48.0 Paroxysmal atrial fibrillation; I25.10 Atherosclerotic heart disease of native coronary artery without angina pectoris; I48.92 Unspecified atrial flutter; Z79.01 Long term (current) use of anticoagulants; Z79.899 Other long term (current) drug therapy; Z79.890 Hormone replacement therapy; Z95.5 Presence of coronary angioplasty implant and graft; Z90.49 Acquired absence of other specified parts of digestive tract; Z98.890 Other specified postprocedural states; Z82.49 Family history of ischemic heart disease and other diseases of the circulatory system
CPT/HCPCS: 33225; 33264; 36415 ×2; 71045; 80048 ×2; 85025; 85610; 85730; 93005; A4215; A4216; A4221; A4222; A4223 ×3; A4606; A4663; C1769 ×4; C1882; C1894; C1900; J0690 ×2; J2175 ×4; J2250 ×4; J3490 ×2; J7030; Q9967; 99156; 99157

== ENCOUNTER → 2022-06-28 | Outpatient (CLI) | payer MEDICARE | END | disposition home or self-care (01) | LOC: OIH 13:53 | PROVIDERS: ATTEND Internal Medicine Cardiovascular Disease | DX: I34.8 Other nonrheumatic mitral valve disorders (principal); I11.9 Hypertensive heart disease without heart failure; I25.119 Atherosclerotic heart disease of native coronary artery with unspecified angina pectoris; R06.00 Dyspnea, unspecified; E78.5 Hyperlipidemia, unspecified; Z95.2 Presence of prosthetic heart valve | CPT/HCPCS: 93306 ==

== ENCOUNTER → 2022-07-16 | Outpatient (CLI) | payer MEDICARE ==
[~2022-07-16] MED LIST changes: +REGADENOSON 0.4 MG/5 ML PF SYG IVP SCH
== END | disposition home or self-care (01) ==
LOC: SHCH 08:19
PROVIDERS: ATTEND Internal Medicine Cardiovascular Disease
DX: I51.7 Cardiomegaly (principal); I25.119 Atherosclerotic heart disease of native coronary artery with unspecified angina pectoris; R06.00 Dyspnea, unspecified; Z95.0 Presence of cardiac pacemaker
CPT/HCPCS: 78452; 96374; 93017; J2785; A9500 ×2

== ENCOUNTER → 2023-03-14 | Outpatient (CLI) | payer OTHER ==
[~2023-03-14] MED LIST changes: -REGADENOSON 0.4 MG/5 ML PF SYG IVP SCH
[2023-03-14 16:59] LABS: MAGNESIUM 2.1 mg/dL (1.80-2.40); POTASSIUM 4.1 mmol/L (3.5-5.1)
== END | disposition home or self-care (01) ==
LOC: LAB 15:27
PROVIDERS: ATTEND Physician Assistant
DX: I25.10 Atherosclerotic heart disease of native coronary artery without angina pectoris (principal); I10 Essential (primary) hypertension
CPT/HCPCS: 36415; 80048; 83735; 83880

== ENCOUNTER 2023-09-11 10:54 | Inpatient (IN) | payer OTHER ==
[2023-09-11] VITALS (8 sets, daily range): BP systolic 137–145; BP diastolic 56–99; PULSE 67–80; RESP 16–20; O2SAT 96–100
[~2023-09-11] VITALS: Ht 160 cm; Wt 110.6 kg
[2023-09-11 11:46] LABS: BASOPHILS # (AUTO) 0.02 K/uL (0.00-0.20); BASOPHILS % (AUTO) 0.2 % (0.0-5.0); EOSINOPHILS # (AUTO) 0.03 K/uL (0.00-0.70); EOSINOPHILS % (AUTO) 0.3 % (0.0-8.0); HEMATOCRIT 31.3 % (42-54); IMMATURE GRANULOCYTE ABSOLUTE 0.03 K/uL (0-1); LYMPHOCYTES # (AUTO) 0.6 K/uL (1.0-4.8); LYMPHOCYTES % (AUTO) 6.4 % (21.0-51.0); MEAN CORPUSCULAR HGB CONC 32.9 g/dL (32.0-36.0); MEAN CORPUSCULAR VOLUME 94.3 fL (79-99); MONOCYTES # (AUTO) 0.8 K/uL (0.1-1.0); MONOCYTES % (AUTO) 9.2 % (3.0-13.0); NEUTROPHILS # (AUTO) 7.5 K/uL (1.8-7.7); NEUTROPHILS % (AUTO) 83.6 % (40.0-77.0); PLATELET COUNT (AUTO) 170 K/uL (130-400); RED BLOOD CELL COUNT(AUTO) 3.32 MIL/uL (4.50-6.20); RED CELL DISTRIBUTION WIDTH 14.1 % (11.0-15.5)
[2023-09-11 11:57] LABS: CREATININE 1.8 mg/dL (0.5-1.5); POTASSIUM 3.3 mmol/L (3.5-5.1)
[2023-09-11 12:04] LABS: ALBUMIN 2.8 g/dL (3.5-5.0); BILIRUBIN,TOTAL 0.7 mg/dL (0.2-1.0); TOTAL PROTEIN, SERUM 6.6 g/dL (6.0-8.3)
[2023-09-11 12:10] LABS: B-TYPE NATRIURETIC PEPTIDE 1070 pg/mL (0-100)
[2023-09-11] MEDS ORDERED: KCL 20 MEQ ERTAB PO ONE ×2 (13:00→14:30)
[2023-09-11] MEDS ORDERED: IPRATROPIUM/ALBUTEROL SULFATE 3 ML SOLUTION IH ONE (13:30)
[2023-09-11] MEDS ORDERED: KETOROLAC 15MG/ML VIAL (15MG/ML) IV PRN (16:30)
[2023-09-11] MEDS ORDERED: DOCUSATE SODIUM 100 MG CAP PO PRN (16:30)
[2023-09-11] MEDS ORDERED: LIDOCAINE HCL 2% VISCOUS 30 ML, MAG/ALUM/SIMETH 30ML 30 ML, DICYCLOMINE HCL 20 MG PO PRN ×3 (16:30)
[2023-09-11] MEDS ORDERED: ACETAMINOPHEN 325 MG TAB PO PRN ×2 (16:30)
[2023-09-11] MEDS ORDERED: POLYETHYLENE GLYCOL 3350 17 GM POWD.PACK PO PRN (16:30)
[2023-09-11] MEDS ORDERED: DIPHENHYDRAMINE HCL 25 MG CAPSULE PO PRN (16:30)
[2023-09-11] MEDS: INSULIN LISPRO 100 UNIT/ML 3ML SQ SCH ×2 (16:30→20:37)
[2023-09-11] MEDS ORDERED: ARTIFICAL TEARS SOL 15 ML OP PRN (16:30)
[2023-09-11] MEDS ORDERED: GUAIFENESIN-DM 200/20 MG 10 ML PO PRN (16:30)
[2023-09-11] MEDS ORDERED: NITROGLYCERIN 0.4 MG SL TAB SL PRN ×2 (16:30→23:00)
[2023-09-11] MEDS ORDERED: MAG/ALUM/SIMETH 30 ML UDCUP PO PRN (16:30)
[2023-09-11 16:57] LABS: HEMATOCRIT 27.9 % (42-54); MEAN CORPUSCULAR HEMOGLOBIN 31.2 pg (27.0-33.0); MEAN CORPUSCULAR HGB CONC 32.6 g/dL (32.0-36.0); MEAN CORPUSCULAR VOLUME 95.5 fL (79-99); PLATELET COUNT (AUTO) 148 K/uL (130-400); RED BLOOD CELL COUNT(AUTO) 2.92 MIL/uL (4.50-6.20); RED CELL DISTRIBUTION WIDTH 14.3 % (11.0-15.5); WHITE BLOOD COUNT (AUTO) 7.3 K/uL (4.8-10.8)
[2023-09-11 17:00] LABS: BASOPHILS # (AUTO) 0.02 K/uL (0.00-0.20); BASOPHILS % (AUTO) 0.3 % (0.0-5.0); EOSINOPHILS # (AUTO) 0.07 K/uL (0.00-0.70); IMMATURE GRANULOCYTE ABSOLUTE 0.02 K/uL (0-1); LYMPHOCYTES # (AUTO) 0.7 K/uL (1.0-4.8); LYMPHOCYTES % (AUTO) 9.2 % (21.0-51.0); MONOCYTES # (AUTO) 0.8 K/uL (0.1-1.0); MONOCYTES % (AUTO) 10.6 % (3.0-13.0); NEUTROPHILS # (AUTO) 5.7 K/uL (1.8-7.7); NEUTROPHILS % (AUTO) 78.6 % (40.0-77.0)
[2023-09-11 17:10] LABS: ABG BASE EXCESS 3.6 mmol/L (-2.0-3.0); ABG HCO3 27.5 mmol/L (21.0-28.0); ABG OXYGEN SATURATION 97.8 % (95.0-99.0); ABG PCO2 39 mmHg (35-48); ABG PH 7.468 (7.35-7.450); CARBON MONOXIDE 0.2; DEVICE COMMENT RR 3LNC; HHb 2.2; PO2, ARTERIAL BG 104.7 mmHg (83.0-108.0)
[2023-09-11] MEDS ORDERED: SODIUM CHLORIDE 3% FOR INHALATION 4 ML/AMP VIAL.NEB IH ONE ×2 (17:55→22:08)
[2023-09-11 17:56] LABS: MAGNESIUM 2.4 mg/dL (1.80-2.40); THYROID STIMULATING HORMONE 2.35 uIU/mL (0.36-3.74)
[2023-09-11] MEDS ORDERED: FUROSEMIDE 40MG VIAL IV ONE (18:00)
[2023-09-11] MEDS: CEFTRIAXONE 2GM VIAL IVPB SCH (18:05)
[2023-09-11] MEDS: IPRATROPIUM 0.5 MG/2.5 ML INH IH SCH ×2 (18:39→22:51)
[2023-09-11] MEDS: DOXYCYCLINE HYCLATE 100 MG TABLET PO SCH (19:45)
[2023-09-11] MEDS: FAMOTIDINE 20MG TAB PO SCH (19:45)
[2023-09-11] MEDS: APIXABAN 5 MG TABLET PO SCH (23:07)
[2023-09-11] MEDS: ATORVASTATIN 40 MG TABLET PO SCH (23:07)
[2023-09-11] MEDS: SACUBITRIL/VALSARTAN 1 EACH TABLET PO SCH (23:07)
[2023-09-12] VITALS (13 sets, daily range): BP systolic 120–160; BP diastolic 62–99; PULSE 64–89; RESP 16–20; TEMP 100.1; O2SAT 96–98
[2023-09-12] MEDS ORDERED: SODIUM CHLORIDE 3% FOR INHALATION 4 ML/AMP VIAL.NEB IH ONE (05:53)
[2023-09-12 06:05] LABS: HEMOGLOBIN A1C 5.8 % (4.0-6.0)
[2023-09-12] MEDS: IPRATROPIUM 0.5 MG/2.5 ML INH IH SCH ×5 (06:14→22:52)
[2023-09-12] MEDS: INSULIN LISPRO 100 UNIT/ML 3ML SQ SCH (06:22)
[2023-09-12] MEDS: LEVOTHYROXINE 50 MCG TABLET PO SCH (06:22)
[2023-09-12] MEDS: DOXYCYCLINE HYCLATE 100 MG TABLET PO SCH ×2 (08:38→20:48)
[2023-09-12] MEDS: AMIODARONE 200 MG TABLET PO SCH (08:38)
[2023-09-12] MEDS: CLOPIDOGREL 75MG TAB PO SCH (08:38)
[2023-09-12] MEDS: SACUBITRIL/VALSARTAN 1 EACH TABLET PO SCH ×2 (08:38→20:48)
[2023-09-12] MEDS: SPIRONOLACTONE 25 MG TAB PO SCH (08:38)
[2023-09-12] MEDS: FUROSEMIDE 20 MG TABLET PO SCH (08:38)
[2023-09-12] MEDS: APIXABAN 5 MG TABLET PO SCH ×2 (08:39→20:48)
[2023-09-12 12:40] LABS: INFLUENZA TYPE A Negative For Type A (NEGATIVE); INFLUENZA TYPE B Negative For Type B (NEGATIVE)
[2023-09-12 13:12] LABS: RAPID GROUP A STREP NEGATIVE (NEGATIVE)
[2023-09-12] MEDS: CEFTRIAXONE 2GM VIAL IVPB SCH (17:22)
[2023-09-12] MEDS: METOPROLOL SUCCINATE 25 MG TAB.SR.24H PO SCH (20:48)
[2023-09-12] MEDS: TRAZODONE HCL 50 MG TAB PO SCH (20:48)
[2023-09-12] MEDS: ATORVASTATIN 40 MG TABLET PO SCH (20:48)
[2023-09-12] MEDS: FAMOTIDINE 20MG TAB PO SCH (20:48)
[2023-09-13] VITALS (18 sets, daily range): BP systolic 109–156; BP diastolic 57–73; PULSE 60–71; RESP 16–24; O2SAT 95–99
[2023-09-13] MEDS: IPRATROPIUM 0.5 MG/2.5 ML INH IH SCH ×6 (02:13→22:05)
[2023-09-13 04:12] LABS: MEAN CORPUSCULAR HEMOGLOBIN 30.8 pg (27.0-33.0); MEAN CORPUSCULAR HGB CONC 32.2 g/dL (32.0-36.0); MEAN CORPUSCULAR VOLUME 95.8 fL (79-99); RED BLOOD CELL COUNT(AUTO) 3.34 MIL/uL (4.50-6.20); RED CELL DISTRIBUTION WIDTH 14.2 % (11.0-15.5); WHITE BLOOD COUNT (AUTO) 8.3 K/uL (4.8-10.8)
[2023-09-13 04:20] LABS: CREATININE 1.7 mg/dL (0.5-1.5); POTASSIUM 4.1 mmol/L (3.5-5.1)
[2023-09-13] MEDS: LEVOTHYROXINE 50 MCG TABLET PO SCH (06:20)
[2023-09-13] MEDS: AMIODARONE 200 MG TABLET PO SCH (08:35)
[2023-09-13] MEDS: SACUBITRIL/VALSARTAN 1 EACH TABLET PO SCH ×2 (08:36→21:10)
[2023-09-13] MEDS: CLOPIDOGREL 75MG TAB PO SCH (08:36)
[2023-09-13] MEDS: DOXYCYCLINE HYCLATE 100 MG TABLET PO SCH ×2 (08:36→21:11)
[2023-09-13] MEDS: APIXABAN 5 MG TABLET PO SCH ×2 (08:36→21:11)
[2023-09-13] MEDS: SPIRONOLACTONE 25 MG TAB PO SCH (08:36)
[2023-09-13] MEDS: FUROSEMIDE 20 MG TABLET PO SCH (08:36)
[2023-09-13] MEDS ORDERED: GUAIFENESIN-DM 200/20 MG 10 ML PO PRN (12:00)
[2023-09-13] MEDS: CEFTRIAXONE 2GM VIAL IVPB SCH (17:38)
[2023-09-13] MEDS: ATORVASTATIN 40 MG TABLET PO SCH (21:10)
[2023-09-13] MEDS: TRAZODONE HCL 50 MG TAB PO SCH (21:10)
[2023-09-13] MEDS: FAMOTIDINE 20MG TAB PO SCH (21:11)
[2023-09-13] MEDS: METOPROLOL SUCCINATE 25 MG TAB.SR.24H PO SCH (21:11)
[2023-09-14] VITALS (16 sets, daily range): BP systolic 120–142; BP diastolic 57–86; PULSE 59–80; RESP 16–24; O2SAT 86–98
[2023-09-14] MEDS: IPRATROPIUM 0.5 MG/2.5 ML INH IH SCH ×6 (02:34→22:39)
[2023-09-14 04:37] LABS: HEMATOCRIT 29.9 % (42-54); MEAN CORPUSCULAR HEMOGLOBIN 30.6 pg (27.0-33.0); MEAN CORPUSCULAR HGB CONC 31.8 g/dL (32.0-36.0); MEAN CORPUSCULAR VOLUME 96.5 fL (79-99); RED BLOOD CELL COUNT(AUTO) 3.1 MIL/uL (4.50-6.20); WHITE BLOOD COUNT (AUTO) 7.7 K/uL (4.8-10.8)
[2023-09-14 04:50] LABS: CREATININE 1.7 mg/dL (0.5-1.5); POTASSIUM 3.6 mmol/L (3.5-5.1)
[2023-09-14] MEDS: LEVOTHYROXINE 50 MCG TABLET PO SCH (06:06)
[2023-09-14] MEDS: DOXYCYCLINE HYCLATE 100 MG TABLET PO SCH ×2 (08:45→20:11)
[2023-09-14] MEDS: CLOPIDOGREL 75MG TAB PO SCH (08:45)
[2023-09-14] MEDS: SPIRONOLACTONE 25 MG TAB PO SCH (08:46)
[2023-09-14] MEDS: SACUBITRIL/VALSARTAN 1 EACH TABLET PO SCH ×2 (08:46→20:11)
[2023-09-14] MEDS: AMIODARONE 200 MG TABLET PO SCH (08:46)
[2023-09-14] MEDS: APIXABAN 5 MG TABLET PO SCH ×2 (08:46→20:12)
[2023-09-14] MEDS: FUROSEMIDE 20 MG TABLET PO SCH (08:47)
[2023-09-14] MEDS: CEFTRIAXONE 2GM VIAL IVPB SCH (17:19)
[2023-09-14] MEDS: TRAZODONE HCL 50 MG TAB PO SCH (20:11)
[2023-09-14] MEDS: ATORVASTATIN 40 MG TABLET PO SCH (20:11)
[2023-09-14] MEDS: METOPROLOL SUCCINATE 25 MG TAB.SR.24H PO SCH (20:11)
[2023-09-14] MEDS: FAMOTIDINE 20MG TAB PO SCH (20:11)
[2023-09-15] VITALS (15 sets, daily range): BP systolic 111–141; BP diastolic 58–75; PULSE 60–65; RESP 18–20; O2SAT 96–98
[2023-09-15] MEDS: IPRATROPIUM 0.5 MG/2.5 ML INH IH SCH ×6 (01:49→21:34)
[2023-09-15 04:38] LABS: MEAN CORPUSCULAR HEMOGLOBIN 30.7 pg (27.0-33.0); MEAN CORPUSCULAR HGB CONC 31.4 g/dL (32.0-36.0); RED BLOOD CELL COUNT(AUTO) 2.96 MIL/uL (4.50-6.20); RED CELL DISTRIBUTION WIDTH 13.8 % (11.0-15.5); WHITE BLOOD COUNT (AUTO) 7.7 K/uL (4.8-10.8)
[2023-09-15 04:53] LABS: CREATININE 1.7 mg/dL (0.5-1.5); POTASSIUM 3.7 mmol/L (3.5-5.1)
[2023-09-15] MEDS: LEVOTHYROXINE 50 MCG TABLET PO SCH (05:59)
[2023-09-15] MEDS: SACUBITRIL/VALSARTAN 1 EACH TABLET PO SCH ×2 (09:12→20:21)
[2023-09-15] MEDS: CLOPIDOGREL 75MG TAB PO SCH (09:13)
[2023-09-15] MEDS: SPIRONOLACTONE 25 MG TAB PO SCH (09:13)
[2023-09-15] MEDS: APIXABAN 5 MG TABLET PO SCH ×2 (09:13→20:22)
[2023-09-15] MEDS: FUROSEMIDE 20 MG TABLET PO SCH (09:13)
[2023-09-15] MEDS: AMIODARONE 200 MG TABLET PO SCH (09:13)
[2023-09-15] MEDS: DOXYCYCLINE HYCLATE 100 MG TABLET PO SCH ×2 (09:17→20:21)
[2023-09-15] MEDS: CEFTRIAXONE 2GM VIAL IVPB SCH (17:15)
[2023-09-15] MEDS: ATORVASTATIN 40 MG TABLET PO SCH (20:21)
[2023-09-15] MEDS: TRAZODONE HCL 50 MG TAB PO SCH (20:21)
[2023-09-15] MEDS: METOPROLOL SUCCINATE 25 MG TAB.SR.24H PO SCH (20:21)
[2023-09-15] MEDS: FAMOTIDINE 20MG TAB PO SCH (20:22)
[2023-09-16] VITALS (14 sets, daily range): BP systolic 135–146; BP diastolic 62–71; PULSE 60–66; RESP 17–20; O2SAT 95–99
[2023-09-16] MEDS: IPRATROPIUM 0.5 MG/2.5 ML INH IH SCH ×7 (01:25→22:16)
[2023-09-16 05:12] LABS: HEMATOCRIT 30.6 % (42-54); MEAN CORPUSCULAR HEMOGLOBIN 30.5 pg (27.0-33.0); MEAN CORPUSCULAR HGB CONC 32.4 g/dL (32.0-36.0); MEAN CORPUSCULAR VOLUME 94.2 fL (79-99); RED BLOOD CELL COUNT(AUTO) 3.25 MIL/uL (4.50-6.20); RED CELL DISTRIBUTION WIDTH 13.8 % (11.0-15.5)
[2023-09-16 05:30] LABS: CREATININE 1.7 mg/dL (0.5-1.5); POTASSIUM 3.6 mmol/L (3.5-5.1)
[2023-09-16] MEDS: LEVOTHYROXINE 50 MCG TABLET PO SCH (06:10)
[2023-09-16] MEDS: FUROSEMIDE 20 MG TABLET PO SCH (08:06)
[2023-09-16] MEDS: SPIRONOLACTONE 25 MG TAB PO SCH (08:06)
[2023-09-16] MEDS: APIXABAN 5 MG TABLET PO SCH ×2 (08:06→21:09)
[2023-09-16] MEDS: AMIODARONE 200 MG TABLET PO SCH (08:06)
[2023-09-16] MEDS: DOXYCYCLINE HYCLATE 100 MG TABLET PO SCH ×2 (08:07→21:09)
[2023-09-16] MEDS: SACUBITRIL/VALSARTAN 1 EACH TABLET PO SCH ×2 (08:07→21:08)
[2023-09-16] MEDS: CLOPIDOGREL 75MG TAB PO SCH (08:07)
[2023-09-16] MEDS: CEFTRIAXONE 2GM VIAL IVPB SCH (17:42)
[2023-09-16] MEDS: TRAZODONE HCL 50 MG TAB PO SCH (21:08)
[2023-09-16] MEDS: METOPROLOL SUCCINATE 25 MG TAB.SR.24H PO SCH (21:09)
[2023-09-16] MEDS: FAMOTIDINE 20MG TAB PO SCH (21:09)
[2023-09-16] MEDS: ATORVASTATIN 40 MG TABLET PO SCH (21:09)
[2023-09-17] VITALS (10 sets, daily range): BP systolic 118–136; BP diastolic 58–71; PULSE 60–80; RESP 16–20; O2SAT 95–97
[2023-09-17] MEDS: IPRATROPIUM 0.5 MG/2.5 ML INH IH SCH ×4 (02:38→14:14)
[2023-09-17 04:05] LABS: HEMATOCRIT 28.5 % (42-54); MEAN CORPUSCULAR HEMOGLOBIN 30.7 pg (27.0-33.0); MEAN CORPUSCULAR HGB CONC 31.9 g/dL (32.0-36.0); MEAN CORPUSCULAR VOLUME 96.3 fL (79-99); RED BLOOD CELL COUNT(AUTO) 2.96 MIL/uL (4.50-6.20); RED CELL DISTRIBUTION WIDTH 13.8 % (11.0-15.5); WHITE BLOOD COUNT (AUTO) 7.8 K/uL (4.8-10.8)
[2023-09-17 04:38] LABS: CREATININE 1.6 mg/dL (0.5-1.5); MAGNESIUM 1.9 mg/dL (1.80-2.40); POTASSIUM 3.4 mmol/L (3.5-5.1)
[2023-09-17] MEDS: LEVOTHYROXINE 50 MCG TABLET PO SCH (05:40)
[2023-09-17] MEDS ORDERED: MAGNESIUM 2GM PREMIX 50ML 50 ML IV PRN (08:00)
[2023-09-17] MEDS ORDERED: POTASSIUM CHLORIDE 20MEQ/100ML 100 ML IV PRN (08:00)
[2023-09-17] MEDS ORDERED: KCL 20 MEQ ERTAB PO PRN (08:00)
[2023-09-17] MEDS ORDERED: POTASSIUM CHLORIDE 10% ELIXIR 20 MEQ/15 ML UDCUP PO PRN (08:00)
[2023-09-17] MEDS: CLOPIDOGREL 75MG TAB PO SCH (09:01)
[2023-09-17] MEDS: SPIRONOLACTONE 25 MG TAB PO SCH (09:01)
[2023-09-17] MEDS: SACUBITRIL/VALSARTAN 1 EACH TABLET PO SCH (09:01)
[2023-09-17] MEDS: FUROSEMIDE 20 MG TABLET PO SCH (09:01)
[2023-09-17] MEDS: AMIODARONE 200 MG TABLET PO SCH (09:01)
[2023-09-17] MEDS: DOXYCYCLINE HYCLATE 100 MG TABLET PO SCH (09:01)
[2023-09-17] MEDS: APIXABAN 5 MG TABLET PO SCH (09:02)
[2023-09-17] MEDS ORDERED: FAMO20TA8 PO (12:57)
[2023-09-17] MEDS ORDERED: DOXY100T2 PO (12:57)
== END 2023-09-17 15:30 | disposition home or self-care (01) | DRG 193 ==
LOC: EDH 10:54 → EDHIP 16:26 → OBSVTOIN 16:26 → 4CH 09-12 00:13
PROVIDERS: ADMIT Internal Medicine; ATTEND Internal Medicine
DX: J18.9 Pneumonia, unspecified organism (principal); J96.21 Acute and chronic respiratory failure with hypoxia; I48.21 Permanent atrial fibrillation; I50.30 Unspecified diastolic (congestive) heart failure; I48.92 Unspecified atrial flutter; J44.0 Chronic obstructive pulmonary disease with (acute) lower respiratory infection; J90 Pleural effusion, not elsewhere classified; Z20.822 Contact with and (suspected) exposure to COVID-19; I25.5 Ischemic cardiomyopathy; N20.0 Calculus of kidney; G47.33 Obstructive sleep apnea (adult) (pediatric); E03.9 Hypothyroidism, unspecified; E11.9 Type 2 diabetes mellitus without complications; I11.0 Hypertensive heart disease with heart failure; E78.00 Pure hypercholesterolemia, unspecified; E87.6 Hypokalemia; I25.10 Atherosclerotic heart disease of native coronary artery without angina pectoris; Z88.7 Allergy status to serum and vaccine; Z79.01 Long term (current) use of anticoagulants; Z87.891 Personal history of nicotine dependence; Z90.49 Acquired absence of other specified parts of digestive tract; Z95.2 Presence of prosthetic heart valve; Z95.5 Presence of coronary angioplasty implant and graft; Z91.041 Radiographic dye allergy status
CPT/HCPCS: 36415; 36600; 71045; 71250; 80048; 80053; 82435; 82550; 82803; 82947; 82948; 83036; 83605; 83735; 83880; 84132; 84145; 84295; 84443; 84484; 85018; 85025; 85027; 85378; 87040; 87071; 87205; 87426; 87804; 87880; 93005; 93306; 93970; 94640; 94664; 94760; G0378; J0696; J1885; J1940; J3475

== ENCOUNTER → 2023-12-06 | Outpatient (CLI) | payer OTHER ==
[~2023-12-06] MED LIST changes: -ALBU90AE2 IH; +DOXY100T2 PO; +FAMO20TA8 PO
[2023-12-06 15:31] LABS: ALBUMIN 3.4 g/dL (3.5-5.0); BILIRUBIN,TOTAL 0.4 mg/dL (0.2-1.0); CREATININE 2.2 mg/dL (0.5-1.5); MAGNESIUM 2.1 mg/dL (1.80-2.40); POTASSIUM 4.9 mmol/L (3.5-5.1); TOTAL PROTEIN, SERUM 7.1 g/dL (6.0-8.3)
== END | disposition home or self-care (01) ==
LOC: LAB 13:42
PROVIDERS: ATTEND Physician Assistant
DX: I10 Essential (primary) hypertension (principal)
CPT/HCPCS: 36415; 80053; 83735; 83880

== ENCOUNTER 2024-09-11 07:17 | Day surgery (SDC) | payer OTHER ==
[2024-09-09 09:58] VITALS: BP 136/67; PULSE 63; RESP 18; TEMP 98.2
--- NOTE | 2024-09-09 10:01 | EKG ---
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
[2024-09-09 10:09] LABS: CREATININE 1.9 mg/dL (0.5-1.3); POTASSIUM 3.9 mmol/L (3.5-5.1)
[2024-09-09 10:18] LABS: INR 1.03 (0.85-1.15); PARTIAL THROMBOPLASTIN TIME 21.7 SEC (26.3-35.5); PROTHROMBIN TIME 11.1 SEC (9.6-11.6)
[2024-09-09 10:53] LABS: B-TYPE NATRIURETIC PEPTIDE 463 pg/mL (0-100)
[2024-09-09 11:01] LABS: RED BLOOD CELL COUNT(AUTO) 3.48 MIL/uL (4.50-6.20); WHITE BLOOD COUNT (AUTO) 6.9 K/uL (4.8-10.8)
[2024-09-09 11:02] LABS: BASOPHILS % (AUTO) 0.1 % (0.0-5.0); EOSINOPHILS % (AUTO) 1.2 % (0.0-8.0); HEMATOCRIT 34.5 % (42-54); LYMPHOCYTES % (AUTO) 21.2 % (21.0-51.0); MEAN CORPUSCULAR HEMOGLOBIN 31.3 pg (27.0-33.0); MEAN CORPUSCULAR HGB CONC 31.6 g/dL (32.0-36.0); MEAN CORPUSCULAR VOLUME 99.1 fL (79-99); MONOCYTES % (AUTO) 9.8 % (3.0-13.0); NEUTROPHILS % (AUTO) 68.4 % (40.0-77.0); PLATELET COUNT (AUTO) 105 K/uL (130-400); RED CELL DISTRIBUTION WIDTH 13.4 % (11.0-15.5)
[2024-09-09 11:03] LABS: BASOPHILS # (AUTO) 0.01 K/uL (0.00-0.20); EOSINOPHILS # (AUTO) 0.08 K/uL (0.00-0.70); LYMPHOCYTES # (AUTO) 1.4 K/uL (1.0-4.8); MONOCYTES # (AUTO) 0.7 K/uL (0.1-1.0); NEUTROPHILS # (AUTO) 4.8 K/uL (1.8-7.7)
[2024-09-09 11:32] LABS: APPEARANCE,URINE CLEAR (CLEAR); COLOR,URINE YELLOW (YELLOW)
[2024-09-09 11:33] LABS: ADD UA MICROSCOPIC NO; BILIRUBIN,URINE NEGATIVE (NEGATIVE); GLUCOSE, URINE (UA) NEGATIVE (NEGATIVE); KETONES,URINE NEGATIVE (NEGATIVE); LEUKOCYTE ESTERASE ,URINE NEGATIVE Leu/uL (NEGATIVE); NITRATE,URINE NEGATIVE (NEGATIVE); OCCULT BLOOD,URINE NEGATIVE (NEGATIVE); PH,URINE 6.5 (5.0-8.0); PROTEIN,URINE NEGATIVE (NEGATIVE); UROBILINOGEN,URINE 0.2 mg/dL (0.2-1.0)
--- NOTE | 2024-09-09 11:48 | HMCIMG ---
CHEST 1VW HISTORY: Preop COMPARISON: 09/12/2000 FINDINGS: A frontal projection of the chest was obtained. No acute pulmonary infiltrates is seen. Poststernotomy changes are seen. The heart is enlarged. Degenerative changes of the thoracolumbar spine are present. Pacemaker is seen entering from the left. Degenerative changes are seen. Aortic calcifications are seen IMPRESSION: 1. No acute pulmonary infiltrate is seen.
--- NOTE | 2024-09-10 14:53 | NUR ---
RE: LABS REPORTED BUN 13/CREAT 1.9 AND PLT 105 TO BRYAN CORREA NP. RECEIVED ORDERS TO REDRAW BMP IN AM.
[2024-09-11] VITALS (13 sets, daily range): BP systolic 127–140; BP diastolic 61–87; PULSE 57–81; RESP 14–20; TEMP 97.1–97.9
[~2024-09-11] VITALS: Ht 170.2 cm; Wt 97.6 kg
[~2024-09-11 07:17] MED LIST changes: +ALBU18HF7 IH; +CALCIUM PO; -DOCU100T PO; +DOCU250C14 PO; -DOXY100T2 PO; -FAMO20TA8 PO; +FOLI1TAB85 PO; +GABA-529 PO; +GUAI-904 PO; +IPRA21SP NS; +ISOS60TA77 PO; +LEVO100T12 PO; -LEVO50CA4 PO; -METO-408 PO; +MULT-1367 PO; +PANT40TA54 PO; +TIOT18CA3 IH
[2024-09-11 08:27] LABS: POTASSIUM 3.5 mmol/L (3.5-5.1)
[2024-09-11] MEDS: 0.9%NACL 1000ML 1,000 ML IV SCH (09:20)
[2024-09-11] MEDS ORDERED: IOHEXOL 350 MG/ML 100ML INFUS..BTL IV ONE (10:40)
[2024-09-11] MEDS ORDERED: HEParin 10,000 UNIT/10ML (1,000 UNIT/ML) VIAL ONE (10:40)
[2024-09-11] MEDS ORDERED: LIDOCAINE HCL 400MG/20ML VIAL ONE (10:40)
[2024-09-11] MEDS ORDERED: niCARDIpine 25MG INJ IV ONE (10:41)
[2024-09-11] MEDS ORDERED: NITROGLYCERIN 50MG VIAL ONE (10:41)
[2024-09-11] MEDS ORDERED: HEParin-NS 1,000 UNIT/500 ML 1,000 ML IV ONE (10:41)
[2024-09-11] MEDS ORDERED: MIDAZOLAM HCL 1 MG/ML 2ML VIAL ONE ×2 (10:49→11:10)
[2024-09-11] MEDS ORDERED: MEPERIDINE-PF 25 MG/ML SYG ONE ×2 (10:49→11:09)
--- NOTE | 2024-09-11 11:32 | PR ---
INDICATIONS AND DESCRIPTION OF PROCEDURE: This gentleman has been evaluated by us as an outpatient because of recurrent symptoms of chest discomfort, requiring nitroglycerin administration. He has extensive coronary artery disease with multiple prior surgical and percutaneous interventions for revascularization. The patient had been assessed and cardiac catheterization was discussed with the patient and his as an outpatient and they had requested to proceed. During the evaluation in the office, the patient was noted to have renal dysfunction with GFR in the 30s-35 range. He was evaluated by his primary care team and we had discussed the potential risks of the procedure in particular, the potential for renal shutdown and the need for dialysis. The patient's preoperative creatinine on Saturday was 1.9 and repeat today was 2.0, his GFR is 34, which is certainly consistent with his chronic state. Today, I have once again had a detailed discussion with the patient and his in regards to the findings on his renal parameter assessment. He has had ample opportunity to review the procedure indications with us and to also discuss the indications for intervention in regards to his renal dysfunction with his nephrology team and his primary care. The patient has requested to proceed with angiography with possible interventions as warranted. He has full understanding that the potential for renal function deterioration and potential for dialysis is real. All his questions were invited and answered. He was offered the option of continued conservative medical management, but he has requested to proceed with cardiac catheterization. The patient is concerned about bilateral lower extremity weakness, which I have explained is not likely to be related to any vascular entity. He has had low back pain and may well have lumbosacral spine disease. After a detailed discussion, the patient has requested to proceed with cardiac catheterization. TID: [id number] RECEIPT: [id number]
[2024-09-11] MEDS ORDERED: 0.9%NACL 1000ML 1,000 ML IV SCH (12:30)
[2024-09-11] MEDS ORDERED: ASPIRIN 325MG EC TAB PO ONE (12:52)
--- NOTE | 2024-09-11 13:47 | PR ---
PROCEDURES: * Left heart catheterization. * Selective angiogram of the left internal mammary artery. * Multiple saphenous vein graft angiogram. * Balloon angioplasty and stent placement in the PDA. * Balloon angioplasty and stenting of the saphenous vein graft to the RCA. * Conscious sedation. INDICATIONS: * Severe coronary artery disease. * Recurrent angina with features of instability, requiring multiple prior nitroglycerin administrations despite optimal medical management. * Extensive history of coronary artery disease with prior history of coronary artery bypass graft surgery and multiple percutaneous interventions with stenting of saphenous vein grafts and rincon circulation. COMPLICATIONS: None. TOTAL CONTRAST: Approximately 55 mL. It is important to make a note that the patient has been imaged with limited views because of prior cardiac catheterization studies and because of renal dysfunction to allow us to minimize contrast use. DESCRIPTION OF PROCEDURE: The patient was taken to the cardiac catheterization lab after appropriate operative consents were signed. He was prepped and draped in the usual fashion. At this point, the right common femoral artery region was infiltrated with 2% Xylocaine without epi after administration of conscious sedation. Lidocaine was administered in the right common femoral artery and 6-Thai sheath was advanced in retrograde fashion by the modified Seldinger technique. A left internal mammary artery IMT catheter was selected and advanced over an indwelling wire and positioned in the left ventricular cavity. Left ventricular end-diastolic pressure measurement was obtained. Ventriculography was deferred. The patient had preserved LV systolic function by noninvasive studies. Pullback revealed no evidence of previously placed bioprosthetic aortic valve. The catheter was then redirected and engaged in the ostium of the left internal mammary artery. This was imaged in multiplane. This was a large vessel that was noted to supply diagonal and LAD in sequential fashion. This vessel was large and had brisk flow, supplied a small diagonal and the LAD. The flow was brisk in the rincon circulation as well. It is important to note that the LAD was occluded after the first diagonal branch by prior studies. The circumflex was also occluded by prior studies in the ostium. The catheter was withdrawn and the left coronary bypass graft catheter was advanced over an indwelling wire and was engaged in the ostium of the saphenous vein graft to the OM. This was a patent vein graft that had the entire body of the graft from ostium to the distal anastomosis covered with stents. It supplied the second obtuse marginal that was moderately large. There was brisk flow in the graft with no significant stenotic lesions. The rincon obtuse marginal was supplied adequately with no significant stenotic lesions. The catheter was withdrawn and a right coronary bypass graft catheter was selected. It is also important to note that the RCA was occluded 100% by prior studies, which we elected not to image at this time to minimize contrast use as it would not had any information or assistance in the patient's management. The right coronary bypass graft was then imaged. This was a patent graft supplying a moderately right sized distal RCA. The entire graft was covered with stents. The distal RCA with also stented, but the PDA had an ostial 80% lesion and was a smallish vessel. The proximal one-third of the saphenous vein graft to the RCA had significant 80% in-stent restenosis and a hazy segment. Moreover, the distal segment of the vessel had an 80% in-stent restenosis. At this point, after full heparinization, a right coronary bypass graft catheter was selected and engaged in the ostium of the right coronary artery bypass. A 0.014 wire was advanced with some difficulty, however, was positioned to the PDA. We were able to proceed with placement of a 2.0 stent in the PDA, which was inflated to 14 atmospheres at 2.10 mm size with good angiographic results. The proximal and distal stents were then dilated with an NC balloon 3.0. The distal stent was then stented with a 3.5 x 34 Yasmani [place] stent inflated to 14 atmospheres at 3.6 mm size with good angiographic results. The proximal segment was inflated with a 3.5 balloon with good final angiographic results and followed by intervention. At this point, the procedure was completed. Attempts at Mynx placement were not successful due to prior fibrotic changes in the common femoral artery region. Manual pressure was held. 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 FINAL IMPRESSION: * Severe rincon 3-vessel coronary artery disease by prior studies. * No bioprosthetic aortic valve stenosis. * EF of 65% by noninvasive echocardiographic study. * Patent WAGGONER sequential to diagonal 2 and LAD. * Patent saphenous vein graft to the OM2 with entire body of the graft having being stented with patent stents. * Patent saphenous vein graft to the RCA with the entire body of the graft being stented with severe in-stent restenosis in the proximal and distal segments. * Successful balloon angioplasty and stenting of the PDA with a 2.0 x 15 Yasmani [place] stent deployed to 14 atmospheres at 2.1 mm size. * Successful balloon angioplasty and stenting of the distal saphenous vein graft to the RCA with a 3.5 x 34 Whitman [place] to 14 atmospheres at 3.6 mm size. * Successful balloon angioplasty pullback of the proximal saphenous vein graft to the RCA with a 3.5 balloon with good angiographic results. PLAN: Continue medical management. TID: [id number] RECEIPT: [id number]
== END 2024-09-11 20:13 | disposition home or self-care (01) ==
LOC: DAH 07:17
PROVIDERS: ATTEND Internal Medicine Cardiovascular Disease
DX: I25.118 Atherosclerotic heart disease of native coronary artery with other forms of angina pectoris (principal); I25.708 Atherosclerosis of coronary artery bypass graft(s), unspecified, with other forms of angina pectoris; T82.855A Stenosis of coronary artery stent, initial encounter; I48.0 Paroxysmal atrial fibrillation; I12.9 Hypertensive chronic kidney disease with stage 1 through stage 4 chronic kidney disease, or unspecified chronic kidney disease; N18.30 Chronic kidney disease, stage 3 unspecified; I47.20 Ventricular tachycardia, unspecified; E78.5 Hyperlipidemia, unspecified; R53.1 Weakness; Y71.2 Prosthetic and other implants, materials and accessory cardiovascular devices associated with adverse incidents; Z95.810 Presence of automatic (implantable) cardiac defibrillator; Z95.1 Presence of aortocoronary bypass graft; Z79.01 Long term (current) use of anticoagulants; Z79.899 Other long term (current) drug therapy; Z98.890 Other specified postprocedural states
CPT/HCPCS: 80048 ×2; 83880; 85025; 85610; 85730; 81003; 36415 ×2; 71045; 93005; 85347 ×2; 93459; C9604; C1769; C1894 ×2; C1725; C1874 ×2; C1887; C1760 ×2; J3490 ×2; J7030; J1644 ×2; J2250 ×2; J2175 ×2; Q9967; A4215; A4222; A4221; A4663; A4216; A4606; C9605; Q9965; A4223 ×3; 96360; 96361; 99156; 99157

== ENCOUNTER → 2024-09-14 | Outpatient (CLI) | payer OTHER ==
[2024-09-14 12:07] LABS: BASOPHILS # (AUTO) 0.01 K/uL (0.00-0.20); BASOPHILS % (AUTO) 0.1 % (0.0-5.0); EOSINOPHILS # (AUTO) 0.06 K/uL (0.00-0.70); EOSINOPHILS % (AUTO) 0.8 % (0.0-8.0); IMMATURE GRANULOCYTE ABSOLUTE 0.03 K/uL (0-1); LYMPHOCYTES # (AUTO) 0.9 K/uL (1.0-4.8); LYMPHOCYTES % (AUTO) 11.3 % (21.0-51.0); MEAN CORPUSCULAR HEMOGLOBIN 30.8 pg (27.0-33.0); MEAN CORPUSCULAR VOLUME 99.4 fL (79-99); MONOCYTES # (AUTO) 0.9 K/uL (0.1-1.0); MONOCYTES % (AUTO) 11.4 % (3.0-13.0); NEUTROPHILS # (AUTO) 5.8 K/uL (1.8-7.7); PLATELET COUNT (AUTO) 109 K/uL (130-400); RED BLOOD CELL COUNT(AUTO) 3.12 MIL/uL (4.50-6.20); RED CELL DISTRIBUTION WIDTH 13.4 % (11.0-15.5); WHITE BLOOD COUNT (AUTO) 7.6 K/uL (4.8-10.8)
[2024-09-14 12:33] LABS: ALBUMIN 3.2 g/dL (3.5-5.0); BILIRUBIN,TOTAL 0.3 mg/dL (0.2-1.0); CREATININE 1.8 mg/dL (0.5-1.3); TOTAL PROTEIN, SERUM 6.5 g/dL (6.0-8.3)
== END | disposition home or self-care (01) ==
LOC: LAB 09:56
PROVIDERS: ATTEND Internal Medicine Cardiovascular Disease
DX: I10 Essential (primary) hypertension (principal); E78.5 Hyperlipidemia, unspecified; I48.0 Paroxysmal atrial fibrillation
CPT/HCPCS: 36415; 80053; 85025